=== PATIENT | male | born 1990 | race African-American/Black ===

== ENCOUNTER 2020-07-29 10:45 | Inpatient (IN) ==
[2020-07-29] MEDS ORDERED: HYDROmorphone 2 MG/1 ML VIAL ONE (10:48)
[2020-07-29] MEDS ORDERED: ONDANSETRON 4 MG/2 ML VIAL ONE ×2 (10:48→17:21)
[2020-07-29] MEDS ORDERED: HYDROmorphone 2 MG/1 ML VIAL IV STA (10:53)
[2020-07-29] MEDS ORDERED: SODIUM CHLORIDE 0.9% 1,000 ML IV STA (10:56)
[2020-07-29] MEDS ORDERED: ONDANSETRON 4 MG/2 ML VIAL IV STA (12:07)
[2020-07-29 12:08] LABS: Basophils % 0.1 % (0.0-0.8); Eosinophils % 0.3 % (0.00-10.9); Hematocrit 43.8 VOL% (42.0-52.0); Hemoglobin 14.1 GM/DL (14.0-18.0); Immature Granulocytes Absolute 0.11 #; Lymphocytes # 1.1 10*3/uL (1.4-4.0); Lymphocytes % 9.1 % (21.2-54.2); Mean Corpuscular HGB Conc 32.2 GM/DL (32-36); Mean Corpuscular Volume 90.3 FL (87-102); Mean Platelet Volume 9.3 FL (9.6-12.0); Monocytes % 5.1 % (1.7-12.7); Neutrophils % 84.4 % (38.7-73.9); Platelet Count 266 T/CUMM (130-400); Red Blood Count 4.85 MC/CUMM (3.8-5.5); Red Cell Distribution Width 12.6 % (9.3-17.3); White Blood Count 11.5 T/CUMM (4-12)
[2020-07-29 12:18] LABS: Partial Thromboplastin Time 23.6 SECS (23.9-33.8)
[2020-07-29 12:23] LABS: Bilirubin,Urine Negative (Negative); Blood, Urine Large mg/dL (Negative); Glucose,Urine (UA) Negative (Negative); Ketones,Urine Negative (Negative); Nitrite,Urine Negative (Negative); Protein,Urine 30 MG/DL; RBC,Urine 7 /HPF (0-4); Squamous Epithelial Cell,Urine Occasional /HPF (0-10); Urine Appearance CLEAR (Clear); Urine Color Straw (Yellow); Urine Specific Gravity 1.032 (1.001-1.035); Urine Urobilinogen < 2.0 EU/DL (0.2-1.0); WBC,Urine 3 /HPF (0-6)
[2020-07-29 12:26] LABS: Alanine Aminotransferase 57 U/L (16-61); Albumin 3.4 G/DL (3.4-5.0); Alkaline Phosphatase 66 U/L (45-117); Aspartate Amino Transferase 73 U/L (0-37); Blood Urea Nitrogen 10 MG/DL (7-18); Calcium 8.3 MG/DL (8.5-10.1); Carbon Dioxide 28 MMOL/L (21-32); Estimated Glom Filtration Rate 119 ML/MIN; Glucose 95 MG/DL (74-106); Sodium 136 MMOL/L (136-145)
[2020-07-29 12:27] LABS: Barbiturates Screen,Urine Negative (Negative); Benzodiazepines Screen,Urine Negative (Negative); Cannabinoid Screen,Urine Positive (Negative); Opiate Screen,Urine Positive (Negative); Phencyclidine Screen,Urine Negative (Negative)
[2020-07-29] MEDS ORDERED: ACETAMINOPHEN 325 MG TABLET PO PRN (13:06)
[2020-07-29] MEDS ORDERED: HYDROmorphone 2 MG/1 ML VIAL IV PRN (13:06)
[2020-07-29] MEDS ORDERED: BISACODYL 5 MG TABLET PO PRN (13:06)
[2020-07-29] MEDS ORDERED: ONDANSETRON 4 MG/2 ML VIAL IV PRN (13:06)
[2020-07-29] MEDS ORDERED: KETOROLAC 15 MG/1 ML VIAL IV PRN (13:06)
[2020-07-29] MEDS ORDERED: fentaNYL 100 MCG/2 ML VIAL ONE (16:37)
[2020-07-29] MEDS ORDERED: MIDAZOLAM 2 MG/2 ML VIAL ONE (16:37)
[2020-07-29] MEDS ORDERED: CLINDAMYCIN INJ 50 ML IV ONE (16:40)
[2020-07-29] MEDS: LACTATED RINGERS 1,000 ML IV SCH ×4 (16:43→23:58)
[2020-07-29] MEDS ORDERED: SUCCINYLCHOLINE 200 MG/10 ML VIAL ONE (17:21)
[2020-07-29] MEDS ORDERED: PHENYLEPHRINE 1 MG/10 ML SYRINGE IV ONE ×2 (17:21→17:31)
[2020-07-29] MEDS ORDERED: ROCURONIUM 50 MG/5 ML VIAL IV ONE (17:21)
[2020-07-29] MEDS ORDERED: LIDOCAINE 2% 5 ML VIAL ONE (17:21)
[2020-07-29] MEDS ORDERED: propofoL 200 MG/20 ML VIAL IV ONE (17:21)
[2020-07-29] MEDS ORDERED: SEVOFLURANE 1 UNIT/15 MINUTE INH ONE ×2 (17:21→18:03)
[2020-07-29] MEDS ORDERED: DEXAMETHASONE 4 MG/1 ML VIAL ONE (17:21)
[2020-07-29] MEDS: metroNIDAZOLE INJ 500 MG in PREMIX 1 EACH IV SCH (17:57)
[2020-07-29] MEDS ORDERED: LACTATED RINGERS 1,000 ML IV ONE (18:01)
[2020-07-29] MEDS ORDERED: PROMETHAZINE 25 MG/1 ML VIAL IM PRN (18:03)
[2020-07-29] MEDS ORDERED: MAGNESIUM HYDROXIDE SUSP 30 ML UDCUP PO PRN (18:03)
[2020-07-29] MEDS ORDERED: diphenhydrAMINE CAP 25 MG CAPSULE PO PRN (18:03)
[2020-07-29] MEDS: LEVOFLOXACIN INJ 750 MG in PREMIX 1 EACH IV SCH (20:48)
[2020-07-29] MEDS: CLINDAMYCIN INJ 600 MG in PREMIX 1 EACH IV SCH (23:58)
[2020-07-30] MEDS: metroNIDAZOLE INJ 500 MG in PREMIX 1 EACH IV SCH ×3 (01:11→17:13)
[2020-07-30] MEDS: LACTATED RINGERS 1,000 ML IV SCH ×2 (06:19→15:15)
[2020-07-30 06:24] LABS: Basophils % 0.1 % (0.0-0.8); Hematocrit 34.7 VOL% (42.0-52.0); Immature Granulocytes % 0.5 %; Immature Granulocytes Absolute 0.06 #; Lymphocytes # 0.8 10*3/uL (1.4-4.0); Lymphocytes % 7.5 % (21.2-54.2); Mean Corpuscular HGB Conc 33.7 GM/DL (32-36); Mean Corpuscular Volume 87.8 FL (87-102); Mean Platelet Volume 9.7 FL (9.6-12.0); Monocytes % 4.8 % (1.7-12.7); Neutrophils % 87.1 % (38.7-73.9); Platelet Count 223 T/CUMM (130-400); Red Blood Count 3.95 MC/CUMM (3.8-5.5); Red Cell Distribution Width 12.7 % (9.3-17.3)
[2020-07-30 06:29] LABS: Hemoglobin 11.7 GM/DL (14.0-18.0)
[2020-07-30 06:34] LABS: Hypochromasia Slight; Microcytosis Slight; Platelet Estimate Adequate
[2020-07-30 06:36] LABS: Calcium 8.2 MG/DL (8.5-10.1); Osmolality,Calculated 273.8 MOS/KG (273-304)
[2020-07-30] MEDS: PANTOPRAZOLE 40 MG TABLET PO SCH (08:25)
[2020-07-30] MEDS: CLINDAMYCIN INJ 600 MG in PREMIX 1 EACH IV SCH ×2 (08:26→15:13)
[2020-07-30] MEDS: HYDROmorphone 2 MG/1 ML VIAL IV PRN ×3 (10:06→18:15)
[2020-07-30] MEDS: ALBUTEROL/IPRATROPIUM 3 ML NEB RESP TX PRN (20:32)
[2020-07-30] MEDS: LEVOFLOXACIN INJ 750 MG in PREMIX 1 EACH IV SCH (22:10)
[2020-07-31] MEDS: metroNIDAZOLE INJ 500 MG in PREMIX 1 EACH IV SCH ×4 (00:59→23:01)
[2020-07-31] MEDS: LACTATED RINGERS 1,000 ML IV SCH ×3 (01:00→18:30)
[2020-07-31 05:29] LABS: Hematocrit 31.8 VOL% (42.0-52.0); Hemoglobin 10.5 GM/DL (14.0-18.0)
[2020-07-31] MEDS: PANTOPRAZOLE 40 MG TABLET PO SCH (09:02)
[2020-07-31] MEDS: HYDROmorphone 2 MG/1 ML VIAL IV PRN ×2 (10:47→18:35)
[2020-07-31] MEDS: ALBUTEROL/IPRATROPIUM 3 ML NEB RESP TX PRN (19:25)
[2020-07-31] MEDS: LEVOFLOXACIN INJ 750 MG in PREMIX 1 EACH IV SCH (21:13)
[2020-08-01 05:28] LABS: Basophils % 0.2 % (0.0-0.8); Eosinophils # 0.2 10*3/uL (0.0-0.87); Eosinophils % 2.3 % (0.00-10.9); Hematocrit 31.7 VOL% (42.0-52.0); Hemoglobin 10.5 GM/DL (14.0-18.0); Immature Granulocytes % 0.4 %; Immature Granulocytes Absolute 0.03 #; Lymphocytes # 1.2 10*3/uL (1.4-4.0); Mean Corpuscular HGB Conc 33.1 GM/DL (32-36); Mean Corpuscular Volume 88.5 FL (87-102); Mean Platelet Volume 9.4 FL (9.6-12.0); Monocytes % 6.8 % (1.7-12.7); Neutrophils % 75.3 % (38.7-73.9); Platelet Count 213 T/CUMM (130-400); Red Blood Count 3.58 MC/CUMM (3.8-5.5); Red Cell Distribution Width 12.2 % (9.3-17.3); White Blood Count 8.3 T/CUMM (4-12)
[2020-08-01 05:32] LABS: Calcium 8.3 MG/DL (8.5-10.1); Osmolality,Calculated 271.8 MOS/KG (273-304)
[2020-08-01] MEDS: LACTATED RINGERS 1,000 ML IV SCH ×3 (06:32→14:47)
[2020-08-01] MEDS: PANTOPRAZOLE 40 MG TABLET PO SCH (09:04)
[2020-08-01] MEDS: metroNIDAZOLE INJ 500 MG in PREMIX 1 EACH IV SCH (09:05)
[2020-08-01 12:00] VITALS: BP 123/65
[2020-08-01] MEDS ORDERED: ONDANSETRON ODT 4 MG TABLET PO ONE (14:17)
== END 2020-08-01 14:45 | disposition home or self-care (01) | DRG 956 ==
LOC: EDBD → EDUNIT# → N.ED 10:45 → N.EDINP 13:06 → N.3E 14:44
PROVIDERS: ADMIT Student in an Organized Health Care Education/Training Program; ATTEND Student in an Organized Health Care Education/Training Program